=== PATIENT | female | born 1960 | race Caucasian/White ===

== ENCOUNTER → 2024-03-28 11:59 | Outpatient (REF) | payer MEDICARE, OTHER, SELFPAY | LOC: WDC 11:59 | PROVIDERS: ATTENDING PHYSICIAN Family Medicine | DX: Z12.31 Encounter for screening mammogram for malignant neoplasm of breast (principal) | CPT/HCPCS: 77063; 77067 ==

== ENCOUNTER → 2025-03-31 15:44 | Outpatient (REF) | payer MEDICARE, OTHER, SELFPAY | LOC: RAD 15:44 | PROVIDERS: ATTENDING PHYSICIAN Family Medicine | DX: M54.2 Cervicalgia (principal); M25.512 Pain in left shoulder; R20.2 Paresthesia of skin | CPT/HCPCS: 72040; 73030; 73130 ==